=== PATIENT | female | born 1955 | race Caucasian/White ===

== ENCOUNTER → 2019-07-06 | Outpatient (CLI) | payer MEDICARE, MEDICAID | LOC: LAB FS 15:15 | PROVIDERS: ATTEND Ophthalmology | DX: D36.9 Benign neoplasm, unspecified site (principal) ==

== ENCOUNTER 2021-10-11 19:15 | Emergency (ER) | payer MEDICARE, MEDICAID ==
[~2021-10-11] VITALS: Ht 163 cm; Wt 99.4 kg
[2021-10-11] MEDS ORDERED: LEVO100T7 (19:39)
[2021-10-11] MEDS ORDERED: ESCI20TA39 (19:39)
[2021-10-11] MEDS ORDERED: AMIT50TA3 (19:39)
[2021-10-11] MEDS ORDERED: PRAM0.128 (19:39)
[2021-10-11] MEDS ORDERED: ZOLPIDEM (19:39)
[2021-10-11] MEDS ORDERED: GLIP5TAB13 (19:39)
[2021-10-11] MEDS ORDERED: COLE3.75 (19:39)
[2021-10-11] MEDS ORDERED: DIPH1TAB25 (19:39)
[2021-10-11] MEDS ORDERED: IPR14IN (19:39)
[2021-10-11] MEDS ORDERED: LISI5TAB20 (19:39)
[2021-10-11] MEDS ORDERED: FAMO20TA5 (19:39)
[2021-10-11 20:12] LABS: BASOPHILS # (AUTO) 0.1 10^3/uL (0.0-0.1); BASOPHILS % (AUTO) 1 % (0-10); EOSINOPHILS # (AUTO) 0.2 10^3/uL (0.0-0.3); EOSINOPHILS % (AUTO) 2 % (0-10); HEMATOCRIT 46 % (35-52); HEMOGLOBIN 14.8 g/dL (11.5-16.0); LYMPHOCYTES # (AUTO) 2.1 10^3/uL (1.0-4.0); LYMPHOCYTES % (AUTO) 21 % (12-44); MEAN CORPUSCULAR HEMOGLOBIN 29 pg (25-34); MEAN CORPUSCULAR HGB CONC 33 g/dL (32-36); MEAN CORPUSCULAR VOLUME 90 fL (80-99); MEAN PLATELET VOLUME 11.5 fL (9.0-12.2); MONOCYTES # (AUTO) 0.5 10^3/uL (0.0-1.0); MONOCYTES % (AUTO) 5 % (0-12); NEUTROPHILS # (AUTO) 7.1 10^3/uL (1.8-7.8); NEUTROPHILS % (AUTO) 71 % (42-75); PLATELET COUNT 195 10^3/uL (130-400); WHITE BLOOD COUNT 9.9 10^3/uL (4.3-11.0)
[2021-10-11 20:30] LABS: ERYTHROCYTE SEDIMENTATION RATE 17 MM/HR (0-30)
--- NOTE | 2021-10-11 20:32 | Diagnostic Imaging Report ---
EXAMINATION: Left tibia and fibula 2 views HISTORY: Leg injury. COMPARISON: None available. FINDINGS: Alignment is normal. No fracture is seen. Joint spaces are normal. IMPRESSION: No fracture. Dictated by: Dictated on workstation # [id number]
--- NOTE | 2021-10-11 20:32 | Diagnostic Imaging Report ---
EXAMINATION: Left foot 3 views HISTORY: Foot pain. COMPARISON: None available. FINDINGS: There is a heel spur. Alignment is normal. No fracture is seen. Joint spaces are normal. IMPRESSION: No fracture. Dictated by: Dictated on workstation # [id number]
--- NOTE | 2021-10-11 20:36 | ED Lower Extremity ---
General Chief Complaint: Lower Extremity Stated Complaint: POSSIBLE BLOOD CLOT IN L LEG Nursing Triage Note: c/o intermittant left foot numbness, left calf pain since waking up this am. Source: patient (LIMITED HISTORIAN ABOUT PAST MEDICAL HISTORY) History of Present Illness Date Seen by Provider: Oct 11, 2021 Time Seen by Provider: 19:35 Initial Comments PT ARRIVES VIA POV STATES SHE WAS SENT HERE FROM [facility] PT STATES WHEN SHE WAS GETTING OUT OF BED THIS MORNING, AND STEPPED DOWN ON HER LEFT LEG, SHE HAD SEVERE PAIN IN HER ENTIRE LEFT LOWER LEG AND FOOT--BELOW THE KNEE, WITH INTERMITTENT LEFT FOOT / TOES FEELING NUMB AND TINGLY NO INJURY AND SHE DID NOT FALL NO HISTORY OF SIMILAR NO SWELLING TO LEG NO CHEST PAIN OR SHORTNESS OF BREATH NO FEVER NO SKIN DISCOLORATION OR WOUNDS TO LEG OR FOOT. NO BACK PAIN NO DIZZINESS OR PALPITATIONS OR SYNCOPE NO MOTOR DEFICITS TOOK 2 TYLENOL THIS AM ON WAKING, WITHOUT RELIEF PT HAS HISTORY OF DIABETES AND HTN. DENIES HISTORY OF CAD OR PVD. PT STATES SHE HAS NEVER SMOKED Allergies and Home Medications Allergies Coded Allergies: morphine (Verified Allergy, Unknown, 10/11/21) Patient Home Medication List Home Medication List Reviewed: Yes Amitriptyline HCl (Amitriptyline HCl) 50 Mg Tablet, (Reported) Entered as Reported by: ARELIS ARORA on 10/11/211938 Last Action: New Order Colesevelam HCl (Welchol) 3.75 Gm Powd.pack, (Reported) Entered as Reported by: ARELIS ARORA on 10/11/211938 Last Action: New Order Diphenoxylate HCl/Atropine (Diphenoxylate-Atrop 2.5-0.025) 1 Each Tablet, (Reported) Entered as Reported by: ARELIS ARORA on 10/11/211938 Last Action: New Order Escitalopram Oxalate (Escitalopram Oxalate) 20 Mg Tablet, (Reported) Entered as Reported by: ARELIS ARORA on 10/11/211938 Last Action: New Order Famotidine (Famotidine) 20 Mg Tablet, (Reported) Entered as Reported by: ARELIS ARORA on 10/11/211938 Last Action: New Order Glipizide (Glipizide) 5 Mg Tablet, (Reported) Entered as Reported by: ARELIS ARORA on 10/11/211938 Last Action: New Order Ipratropium [place] (Atrovent Hfa) 12.9 Gm Aers, (Reported) Entered as Reported by: ARELIS ARORA on 10/11/211938 Last Action: New Order Levothyroxine Sodium (Levothyroxine Sodium) 100 Mcg Tablet, (Reported) Entered as Reported by: ARELIS ARORA on 10/11/211938 Last Action: New Order Lisinopril (Lisinopril) 5 Mg Tablet, (Reported) Entered as Reported by: ARELIS ARORA on 10/11/211938 Last Action: New Order Pramipexole Di-HCl (Pramipexole Dihydrochloride) 0.125 Mg Tablet, (Reported) Entered as Reported by: ARELIS ARORA on 10/11/211938 Last Action: New Order [Zolpidem] , (Reported) Entered as Reported by: ARELIS ARORA on 10/11/211938 Last Action: New Order Review of Systems Constitutional: no symptoms reported Respiratory: no symptoms reported Cardiovascular: no symptoms reported Gastrointestinal: no symptoms reported Genitourinary: no symptoms reported Musculoskeletal: see HPI Skin: no symptoms reported Psychiatric/Neurological: See HPI Past Ybjkjnl-Sqiqjf-Naqjqe Hx Patient Social History Tobacco Use?: No Substance use?: No Alcohol Use?: No Pt feels they are or have been: No Immunizations Up To Date Influenza Vaccine Up-to-Date: No; Not Current Past Medical History Surgery/Hospitalization HX: right mastectomy, niddm, ibs, htn, hypothryoidism, gerd, high cholesterol. Surgeries: Yes Breast Respiratory: No Cardiac: Yes High Cholesterol, Hypertension Neurological: No [employer] History: Menopausal Genitourinary: No Gastrointestinal: Yes Gastroesophageal Reflux, Chronic Diarrhea, Irritable Bowel Musculoskeletal: No Endocrine: Yes (OBESITY) Hypothyroidsim, Diabetes, Non-Insulin dep HEENT: No (GLASSES) Cancer: Yes Breast Did You Recieve Any Treatments: Yes What Type of Treatment Did You: Chemotherapy, Radiation, Surgical Intervention BREAST CANCER AGE 49--S/P RIGHT MASTECTOMY, CHEMO AND RADIATION HAS NOT SEEN AN ONCOLOGIST IN MANY YEARS. Psychosocial: Yes Anxiety, Depression Integumentary: No Blood Disorders: No Physical Exam Vital Signs Vital Signs - First Documented 10/11/21 19:28 Temp 36.8 Pulse 95 Resp 18 B/P (MAP) 151/81 (104) Pulse Ox 96 O2 Delivery Room Air Capillary Refill : Less Than 3 Seconds Height, Weight, BMI Height: '" Weight: lbs. oz. kg; 37.00 BMI Method: General Appearance: WD/WN, no apparent distress, obese Cardiovascular: normal peripheral pulses, regular rate, rhythm, no murmur Respiratory: normal breath sounds Hips: bilateral hip non-tender, bilateral hip normal inspection Legs: right leg non-tender, right leg normal inspection, right leg normal range of motion, right leg no evidence of injury; left leg other (MARKED TENDERNESS TO VERY LIGHT TOUCH TO THE ENTIRE LEFT LOWER LEG--FROM JUST BELOW THE KNEE DOWN TO TOES. NO SWELLING. NO EXTERNAL EVIDENCE OF TRAUMA. NO SKIN DISCOLORATION. FEET ARE EQUALLY WARM AND PINK. PULSES ARE 1+/4 BILATERALLY WITH EQUAL CAPILLARY REFILL BILATERALLY. THERE ARE VARICOSE VEINS PRESENT ON LEFT LEG, NO SIGNFICANT VARICOSE VEINS NOTED ON RIGHT LEG. SENSORY AND MOTOR ARE INTACT AND EQUAL BILATERALLY. THERE ARE NO WOUNDS OR SORES TO LEGS OR FEET. NO SIGNS OF INFECTION TO LEGS OR FEET. NO CORDING. ) Knees: bilateral knee non-tender, bilateral knee normal inspection, bilateral knee normal range of motion, bilateral knee no evidence of injury Ankles: right ankle non-tender, right ankle normal inspection, right ankle normal range of motion, right ankle no evidence of injury; left ankle other Feet: right foot non-tender, right foot normal inspection, right foot normal range of motion, right foot no evidence of injury; left foot other Neurologic/Tendon: normal sensation, normal motor functions, normal tendon functions Neurologic/Psychiatric: no motor/sensory deficits, alert, normal mood/affect, oriented x 3 Skin: normal color, warm/dry Progress/Results/Core Measures Results/Orders Lab Results Laboratory Tests Test 10/11/21 20:06 Range/Units White Blood Count 9.9 4.3-11.0 10^3/uL Red Blood Count 5.04 3.80-5.11 10^6/uL Hemoglobin 14.8 11.5-16.0 g/dL Hematocrit 46 35-52 % Mean Corpuscular Volume 90 80-99 fL Mean Corpuscular Hemoglobin 29 25-34 pg Mean Corpuscular Hemoglobin Concent 33 32-36 g/dL Red Cell Distribution Width 13.2 10.0-14.5 % Platelet Count 195 130-400 10^3/uL Mean Platelet Volume 11.5 9.0-12.2 fL Immature Granulocyte % (Auto) 0 % Neutrophils (%) (Auto) 71 42-75 % Lymphocytes (%) (Auto) 21 12-44 % Monocytes (%) (Auto) 5 0-12 % Eosinophils (%) (Auto) 2 0-10 % Basophils (%) (Auto) 1 0-10 % Neutrophils # (Auto) 7.1 1.8-7.8 10^3/uL Lymphocytes # (Auto) 2.1 1.0-4.0 10^3/uL Monocytes # (Auto) 0.5 0.0-1.0 10^3/uL Eosinophils # (Auto) 0.2 0.0-0.3 10^3/uL Basophils # (Auto) 0.1 0.0-0.1 10^3/uL Immature Granulocyte # (Auto) 0.0 0.0-0.1 10^3/uL Erythrocyte Sedimentation Rate 17 0-30 MM/HR Prothrombin Time 13.3 12.2-14.7 SEC INR Comment 1.0 0.8-1.4 Activated Partial Thromboplast Time 30 24-35 SEC D-Dimer 0.54 H 0.00-0.49 UG/ML Sodium Level 140 135-145 MMOL/L Potassium Level 3.7 3.6-5.0 MMOL/L Chloride Level 104 98-107 MMOL/L Carbon Dioxide Level 23 21-32 MMOL/L Anion Gap 13 5-14 MMOL/L Blood Urea Nitrogen 14 7-18 MG/DL Creatinine 0.86 0.60-1.30 MG/DL Estimat Glomerular Filtration Rate 74 BUN/Creatinine Ratio 16 Glucose Level 103 70-105 MG/DL Calcium Level 9.5 8.5-10.1 MG/DL Corrected Calcium 9.5 8.5-10.1 MG/DL Magnesium Level 1.7 1.6-2.4 MG/DL Total Bilirubin 0.5 0.1-1.0 MG/DL Aspartate Amino Transf (AST/SGOT) 21 5-34 U/L Alanine Aminotransferase (ALT/SGPT) 17 0-55 U/L Alkaline Phosphatase 105 40-136 U/L Total Creatine Kinase 28 L 29-168 U/L Creatine Kinase MB 0.8 <6.6 NG/ML Myoglobin 31.6 10.0-92.0 NG/ML C-Reactive Protein High Sensitivity 0.47 0.00-0.50 MG/DL Total Protein 7.4 6.4-8.2 GM/DL Albumin 4.0 3.2-4.5 GM/DL My Orders Orders - BURKE WASSERMAN DO Ed Iv/Invasive Line Start (10/11/21 19:52) Tibia/Fibula, Left, 2 Views (10/11/21 19:52) Foot, Left, 3 Views (10/11/21 19:52) Cbc With Automated Diff (10/11/21 19:52) Comprehensive Metabolic Panel (10/11/21 19:52) Creatine Kinase (10/11/21 19:52) Creatine Kinase Mb (10/11/21 19:52) Hs C Reactive Protein (10/11/21 19:52) Fibrin Degradation Products (10/11/21 19:52) Magnesium (10/11/21 19:52) Protime With Inr (10/11/21 19:52) Partial Thromboplastin Time (10/11/21 19:52) Erythrocyte Sedimentation Rate (10/11/21 19:52) Myoglobin Serum (10/11/21 19:52) Enoxaparin Injection (Lovenox Injection) (10/11/21 21:15) Ketorolac Injection (Toradol Injection) (10/11/21 21:15) Rx-Hydrocodone/Apap 5-325 Mg (Rx-Vicodin (10/11/21 21:15) Medications Given in ED Current Medications Medications Dose Ordered Sig/Shlomo Route Start Time Stop Time Status Last Admin Dose Admin Acetaminophen/ Hydrocodone Bitart 1 ea Q4H PRN PO 10/11/21 21:15 10/11/21 21:16 1 EA Enoxaparin Sodium 100 mg ONCE ONCE SC 10/11/21 21:15 10/11/21 21:16 DC 10/11/21 21:16 100 MG Ketorolac Tromethamine 30 mg ONCE ONCE IVP 10/11/21 21:15 10/11/21 21:16 DC 10/11/21 21:16 30 MG Vital Signs/I&O 10/11/21 10/11/21 19:28 21:19 Temp 36.8 36.5 Pulse 95 66 Resp 18 18 B/P (MAP) 151/81 (104) 139/99 Pulse Ox 96 95 O2 Delivery Room Air Room Air Blood Pressure Mean: 104 Progress Progress Note : Progress Note NO ULTRASOUND SERVICES AVAILABLE AT THIS HOUR. Diagnostic Imaging Comments XRAYS--PER RADIOLOGIST REPORTS AT 2040 LEFT TIB-FIB- FINDINGS: Alignment is normal. No fracture is seen. Joint spaces are normal. IMPRESSION: No fracture. LEFT FOOT- FINDINGS: There is a heel spur. Alignment is normal. No fracture is seen. Joint spaces are normal. IMPRESSION: No fracture. Reviewed: Reviewed by Me Departure Impression Primary Impression: Pain in left lower leg Disposition: HOME, SELF-CARE Condition: Stable Departure-Patient Inst. Decision time for Depature: 21:10 Referrals: [facility] (PCP) Primary Care Physician DESHAWN PATEL APRN (Family) Primary Care Physician Patient Instructions: Acute Pain, Adult (DC) Add. Discharge Instructions: TYLENOL AND MOTRIN NEEDED FOR PAIN CALL SCHEDULING DEPARTMENT FIRST THING IN THE MORNING TO SCHEDULE ULTRASOUND OF YOUR LEG FOLLOW UP WITH [facility] TOMORROW FOR TEST RESULTS AND FURTHER CARE All discharge instructions reviewed with patient and/or family. Voiced unders tanding. BURKE WASSERMAN DO Oct 11, 2021 20:36
[2021-10-11 20:49] LABS: FIBRIN DEGRADATION PRODUCTS 0.54 UG/ML (0.00-0.49); PROTHROMBIN TIME PATIENT 13.3 SEC (12.2-14.7)
[2021-10-11 21:06] LABS: BILIRUBIN,TOTAL 0.5 MG/DL (0.1-1.0); CALCIUM 9.5 MG/DL (8.5-10.1); CREATININE SERUM 0.86 MG/DL (0.60-1.30); MAGNESIUM 1.7 MG/DL (1.6-2.4); POTASSIUM 3.7 MMOL/L (3.6-5.0); TOTAL PROTEIN 7.4 GM/DL (6.4-8.2)
[2021-10-11] MEDS: KETOROLAC 30 MG/ML VIAL IVP ONE (21:16)
[2021-10-11] MEDS: ENOXAPARIN 100 MG/1 ML (LOVENOX) SYR SC ONE (21:16)
[2021-10-11 21:19] VITALS: BP 139/99
[2021-10-11 21:30] LABS: CREATINE KINASE MB 0.8 NG/ML (<6.6)
== END 2021-10-11 21:24 | disposition home or self-care (01) ==
LOC: EDUNIT# 19:15 → ER 19:17
DX: M79.662 Pain in left lower leg (principal); E66.9 Obesity, unspecified; Z68.37 Body mass index [BMI] 37.0-37.9, adult
CPT/HCPCS: 36415; 73590; 73630; 80053; 82550; 82553; 83735; 83874; 85025; 85379; 85610; 85652; 85730; 86141

== ENCOUNTER → 2021-10-11 | Outpatient (CLI) | payer MEDICARE, MEDICAID ==
[~2021-10-11] MED LIST: AMIT50TA3; COLE3.75; DIPH1TAB25; ESCI20TA39; FAMO20TA5; GLIP5TAB13; IPR14IN; LEVO100T7; LISI5TAB20; PRAM0.128; ZOLPIDEM
== END ==
LOC: RAD 21:27
PROVIDERS: ATTEND Emergency Medicine
DX: Z53.9 Procedure and treatment not carried out, unspecified reason (principal)

== ENCOUNTER → 2022-06-03 | Outpatient (CLI) | payer MEDICARE, MEDICAID ==
[~2022-06-03] MED LIST changes: -COLE3.75; +[UNRECOGNIZED DRUG - CODE]
--- NOTE | 2022-06-03 17:49 | Diagnostic Imaging Report ---
INDICATION: 67-year-old female, breast cancer. TECHNIQUE: The patient was administered 22.5 mCi technetium 99m MDP intravenously. Anterior and posterior whole-body planar images were obtained. CORRELATION STUDY: None FINDINGS: Slight asymmetric uptake about the bilateral shoulders as well as knees right greater than left suggesting degenerative type activity. The bony calvarium, ribs and sternum unremarkable. Very mild scoliotic curvature, the thoracic and lumbar spine. Pelvis unremarkable. Bilateral hip joints unremarkable. Physiologic uptake by the kidneys excretion into urinary bladder. Slight increased soft tissue uptake over the right chest wall compared to left. IMPRESSION: 1. Baseline whole body bone scan demonstrates no evidence for osteoblastic metastasis. Dictated by: Dictated on workstation # [id number]
== END ==
LOC: CARD 11:08
PROVIDERS: ATTEND Nurse Practitioner
DX: R21 Rash and other nonspecific skin eruption (principal); Z85.3 Personal history of malignant neoplasm of breast
CPT/HCPCS: 78306; A9503